=== PATIENT | female | born 1980 | race Caucasian/White ===

== ENCOUNTER 2025-03-26 13:44 | Emergency (ER) | payer SELFPAY ==
[2025-03-26 14:00] VITALS: BP 127/89; PULSE 75; RESP 20; TEMP 36.7; O2SAT 98
--- NOTE | 2025-03-26 15:04 | ED_ITS ---
HPI - Skin/Abscess/Foreign Bdy General Chief complaint: Skin/Abscess/Foreign Body Stated complaint: rash all over Time Seen by Provider: 03/26/25 14:24 Source: patient Mode of arrival: ambulatory Limitations: no limitations History of Present Illness HPI narrative: This is a 44 year old female that presents to the ER for itchy rash. Reports present over the last couple of months. Rash is diffuse. Concerned she may have scabies. Related Data Allergies Allergy/AdvReac Type Severity Reaction Status Date / Time latex Allergy Mild Verified 07/12/21 11:57 naproxen Allergy Mild Verified 07/12/21 11:57 Review of Systems Review of Systems: All systems reviewed & are unremarkable except as noted in HPI and below Exam Narrative: GENERAL: Well-appearing, well-nourished, and in no acute distress. HEAD: Normocephalic, atraumatic. EYES: EOMI. EXTREMITIES: Normal range of motion. No edema. SKIN: Warm, dry. Excoriated papules present on the arms, chest, face, web spaces, legs NEURO: No focal deficits. Alert and oriented x3. PSYCH: Normal mood and affect Course Vital Signs Vital signs: Vital Signs Temperature 98.1 F 03/26/25 14:00 Pulse Rate 75 03/26/25 14:00 Respiratory Rate 20 03/26/25 14:00 Blood Pressure 127/89 03/26/25 14:00 Pulse Oximetry 98 03/26/25 14:00 Oxygen Delivery Room Air 03/26/25 14:00 Temperature 98.1 F 03/26/25 14:00 Pulse Rate 75 03/26/25 14:00 Respiratory Rate 20 03/26/25 14:00 Blood Pressure 127/89 03/26/25 14:00 Pulse Oximetry 98 03/26/25 14:00 Oxygen Delivery Room Air 03/26/25 14:00 MDM - Skin/Abscess/Foreign Bdy MDM Narrative Medical decision making narrative: Patient presents to the emergency department for an itchy rash that is suspicio us for scabies. Will be treated with permethrin. Instructed to follow-up with PCP Differential Diagnosis Differential diagnosis: Likely viral exanthem, urticaria, allergic reaction to drug, eczema, insect bites and other (Scabies) Critical Care Time Critical Care Time Critical Care Time: No Discharge Plan Discharge Clinical Impression: Scabies Patient Disposition: Home Condition: Stable Instructions: Scabies (ED) Additional Instructions: Return to the emergency department if you experience fever, redness and swelling of your wounds, abnormal drainage from your wounds, or any other symptoms that are concerning to you Take a Pepcid and Zyrtec daily. Benadryl as needed. Apply permethrin cream as prescribed Follow-up with primary care doctor Patient Language: [place]arag[place] Prescriptions: New permethrin 5 % cream 1 applic topical Q14D Qty: 60 0RF Rx Instructions: apply second treatment 14 days after first treatment if live lice remain Follow-up/Referrals: Chan Bobo MD [Primary Care Provider, Family Practice]
== END 2025-03-26 15:31 | disposition home or self-care (01) ==
PROVIDERS: Emergency Provider Physician Assistant; PCP Emergency Medicine
DX: B86 Scabies (principal)
CPT/HCPCS: 99283